=== PATIENT | male | born 1985 | race Caucasian/White ===

== ENCOUNTER 2018-05-02 08:12 | Emergency (ER) | payer OTHER ==
[2018-05-02] MEDS ORDERED: Acetaminophen/oxyCODONE 325-5 MG Tab PO ONE (08:23)
--- NOTE | 2018-05-02 08:32 | EDM.PDOC ---
ED HPI GENERAL MEDICAL PROBLEM - General Chief Complaint: Upper Extremity Injury/Pain Stated Complaint: L SHOULDER PAIN Time Seen by Provider: 05/02/18 08:22 Source of Information: Reports: Patient History Limitations: Reports: No Limitations - History of Present Illness INITIAL COMMENTS - FREE TEXT/NARRATIVE: 32 y/o M with L shoulder pain after fall. Has hx multiple prior dislocations. Had surgery to stabilize shoulder in [place] years ago. 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 Has had severe pain in the L shoulder since then. Pain is sharp, severe, worse with movement, better with rest. Located right in the L shoulder, no radiation of pain. Mild neck pain. No chest pain/SOB. Denies elbow pain or additional extremity pain. Was wearing a hard hat that was knocked off. No LOC. No vomiting. Able to ambulate. Left Shoulder Pain Score (Numeric/FACES): 10 - Related Data Allergies Allergy/AdvReac Type Severity Reaction Status Date / Time No Known Allergies Allergy Verified 05/02/18 08:19 Home Meds: Home Meds Cyclobenzaprine [Flexeril] 10 mg PO TID PRN #20 tab 05/02/18 [Rx] Ibuprofen 800 mg PO TID PRN #40 tablet 05/02/18 [Rx] oxyCODONE 5 mg PO QID PRN #8 tab 05/02/18 [Rx] Past Medical History Respiratory History: Reports: Asthma - Past Surgical History Musculoskeletal Surgical History: Reports: Shoulder Surgery Social & Family History - Tobacco Use Smoking Status *Q: Current Every Day Smoker Years of Tobacco use: 18 Packs/Tins Daily: 0.1 - Caffeine Use Caffeine Use: Reports: Coffee - Recreational Drug Use Recreational Drug Use: No Review of Systems - Review of Systems Review Of Systems: See Below Constitutional: Reports: No Symptoms Eyes: Reports: No Symptoms Ears: Reports: No Symptoms Nose: Reports: No Symptoms Mouth/Throat: Reports: No Symptoms Respiratory: Denies: Shortness of Breath Cardiovascular: Denies: Chest Pain GI/Abdominal: Denies: Abdominal Pain Musculoskeletal: Reports: Shoulder Pain Skin: Denies: Wound Neurological: Reports: No Symptoms ED EXAM, GENERAL - Physical Exam Exam: See Below Exam Limited By: No Limitations General Appearance: Alert, WD/WN, No Apparent Distress Eye Exam: Bilateral Eye: Normal Inspection Ears: Normal External Exam Nose: Normal Inspection Throat/Mouth: Normal Inspection, Normal Oropharynx, Normal Voice, No Airway Compromise Head: Atraumatic, Normocephalic Neck: Normal Inspection, Supple, Non-Tender, Full Range of Motion Respiratory/Chest: No Respiratory Distress, Lungs Clear, Normal Breath Sounds, Chest Non-Tender Cardiovascular: Normal Peripheral Pulses, Regular Rate, Rhythm, No Edema, No Murmur GI/Abdominal: Soft, Non-Tender, No Distention. No: Rebound Back Exam: Normal Inspection. No: Vertebral Tenderness Extremities: Normal Inspection, Other (holding L arm in flexion at the shoulder/ adduction. Skin normal/no abrasion or ecchysmosis. No clavicle TTP or deformity. +Diffuse posterior, lateral, and anterior shoulder TTP. No deformity. Limited rotation and abduction due to pain. +mild humerus TTP, no deformity. No elbow effusion, tenderness, or deformity, full ROM at the elbow. Distal motor/sensation/perfusion intact. ) Neurological: Alert, Oriented, Normal Cognition, No Motor/Sensory Deficits Psychiatric: Normal Affect, Normal Mood Skin Exam: Warm, Dry, Intact, Normal Color, No Rash Course - Vital Signs Last Recorded V/S: Last Vital Signs Temp 37.4 C 05/02/18 08:17 Pulse 84 05/02/18 08:17 Resp 16 05/02/18 08:17 BP 152/86 H 05/02/18 08:17 Pulse Ox 100 05/02/18 08:17 - Orders/Labs/Meds Meds: Medications Discontinued Medications Generic Name Dose Route Start Last Admin Trade Name Freq PRN Reason Stop Dose Admin Cyclobenzaprine HCl 10 mg 05/02/18 09:09 05/02/18 09:25 Flexeril PO 05/02/18 09:10 10 mg ONETIME ONE Administration Oxycodone/Acetaminophen 1 tab 05/02/18 08:23 05/02/18 08:28 Percocet 325-5 Mg PO 05/02/18 08:24 1 tab ONETIME ONE Administration - Re-Assessments/Exams Free Text/Narrative Re-Assessment/Exam: 05/02/18 09:44 CXR shows shows no ptx, no acute abnormality. L shoulder XR shows normal alignment, no dislocation, no bony abnormality. Discussed results with patient. Will provide sling for short-term use and rx for ibuprofen, cyclobenzaprine, and small supply oxycodone. Encouraged pt to f/u with his PCP/orthopedist in [place]. He is returning to [place] this weekend. Departure - Departure Time of Disposition: 09:26 Disposition: Home, Self-Care 01 Clinical Impression: Contusion of left shoulder Qualifiers: Encounter type: initial encounter Qualified Code(s): S40.012A - Contusion of left shoulder, initial encounter - Discharge Information Prescriptions: Cyclobenzaprine [Flexeril] 10 mg PO TID PRN #20 tab PRN Reason: Muscle Spasm Ibuprofen 800 mg PO TID PRN #40 tablet PRN Reason: Pain oxyCODONE 5 mg PO QID PRN #8 tab PRN Reason: Pain Instructions: Contusion Referrals: PCP,Not In Area [Primary Care Provider] - Forms: ED Department Discharge Additional Instructions: 1. Take ibuprofen as prescribed for pain. Take acetaminophen (Tylenol) in addition to ibuprofen if you still have pain. 2. Take cyclobenzaprine (Flexeril) for muscle spasm 3. Take oxycodone as prescribed for severe pain only. No driving/working while taking this medication as it may make you sleepy or confused. 4. Ice shoulder and rest it today and tomorrow. After tomorrow, switch to heat. Wear sling for comfort but do daily range of motion exercises as tolerated to avoid getting a stiff shoulder. 5. Follow up with your primary doctor and/or orthopedist for further care, including referral for physical therapy if you continue to have trouble with your shoulder.
[2018-05-02] MEDS ORDERED: Cyclobenzaprine 10 MG Tab PO ONE (09:09)
--- NOTE | 2018-05-02 09:55 | CR ---
Left shoulder: Three views of the left shoulder were obtained. Comparison: Previous left shoulder study of 04/14/12. Glenohumeral and acromioclavicular joints appear within normal limits. No fracture or other bony abnormality is identified. Impression: 1. No abnormality is appreciated on three-view left shoulder study. Diagnostic code #1
--- NOTE | 2018-05-02 09:55 | CR ---
Chest: PA view of the chest was obtained. Comparison: No prior chest x-ray. Heart size and mediastinum are within normal limits. Lungs are clear. Slight scoliosis is present within the spine. No discrete bony abnormality is otherwise seen. Impression: 1. Nothing acute is seen on PA chest x-ray. Diagnostic code #1
--- NOTE | 2018-05-02 09:55 | CR ---
Left humerus: Two views of the left humerus were obtained. Comparison: No previous study. No fracture or other bony abnormality is seen. Impression: 1. No abnormality is seen on two-view left humerus study. Diagnostic code #1
== END 2018-05-02 09:39 | disposition home or self-care (01) ==
LOC: JD.ED 08:12
DX: S40.012A Contusion of left shoulder, initial encounter (principal); F17.210 Nicotine dependence, cigarettes, uncomplicated; J45.909 Unspecified asthma, uncomplicated; W17.89XA Other fall from one level to another, initial encounter
CPT/HCPCS: 71045; 73030; 73060; 99283; A9270